=== PATIENT | female | born 1970 | race Hispanic/Latino ===

== ENCOUNTER 2020-06-23 14:11 | Outpatient (CLI) | payer OTHER ==
--- NOTE | 2020-06-23 19:14 | Ultrasound Report ---
ULTRASOUND PELVIS INDICATION / CLINICAL INFORMATION: PELVIC PAIN. TECHNIQUE: Transabdominal. Duplex Color Doppler used: Yes. COMPARISON: None available FINDINGS: UTERUS: Present. - Appearance (if present): No significant abnormality. - Size in cm (if present): 8.6 x 4.0 x 5.4. - Endometrial Complex (if present): No significant abnormality.. Thickness in cm (if measured) = 1.3 - Mass lesions: Small fundal fibroids noted, with the largest in the anterior myometrium measuring 2. 4 cm - Additional findings: None. RIGHT ADNEXA: There is a 5.1 cm simple cyst in the right ovary. Normal color Doppler blood flow. LEFT ADNEXA: No significant ovarian cyst or mass. Normal color Doppler blood flow. URINARY BLADDER: No significant abnormality. FREE FLUID: None. ADDITIONAL FINDINGS: None. IMPRESSION: 1. There is a 5.1 cm right ovarian cyst. This is almost totally benign. Follow-up pelvic ultrasound i n 1 year is recommended. 2. Small uterine fibroids. Signer Name: Uriel Quach MD Signed: 06/23/2020 7:09 PM Workstation Name: [id number]
--- NOTE | 2020-06-24 07:43 | Mammography Report ---
DIGITAL SCREENING MAMMOGRAM WITH CAD, 06/23/2020 CLINICAL INFORMATION / INDICATION: Routine screening mammography. TECHNIQUE: Digital bilateral 2D mammography was obtained in the craniocaudal and mediolateral obliqu e projections. This examination was interpreted with the benefit of Computer-Aided Detection analysis . COMPARISON: None available FINDINGS: Breast Density: The breasts are heterogeneously dense, which may obscure small masses. No dominant mass, suspicious calcifications, or architectural distortion in either breast. IMPRESSION: No mammographic evidence of malignancy. Follow up recommendation: Routine yearly BI-RADS Category 1: Negative. A "normal" or negative report should not discourage follow up or biopsy of a clinically significant f inding. A written summary of these findings will be mailed to the patient. The patient will be entered into a mammography reporting system which will generate a reminder letter for the patient's next appointmen t at the appropriate interval. The [employer] recommends yearly mammograms starting at age 40 and continuing as l zuleika as a woman is in good health. Breast MRI is recommended for women with an approximate 20-25% or greater lifetime risk of breast cancer, including women with a strong family history of breast or ova yosef cancer or who have been treated for Hodgkin's disease. Signer Name: Abhishek López MD Signed: 06/24/2020 7:39 AM Workstation Name: [id number]
== END 2020-06-23 14:12 | disposition home or self-care (01) ==
LOC: MAMMO 14:11
PROVIDERS: ATTEND Family Medicine Adult Medicine
DX: Z12.31 Encounter for screening mammogram for malignant neoplasm of breast (principal); N85.2 Hypertrophy of uterus; N83.291 Other ovarian cyst, right side; D25.9 Leiomyoma of uterus, unspecified
CPT/HCPCS: 76856; 77067

== ENCOUNTER 2020-07-22 06:12 | Day surgery (SDC) | payer OTHER ==
--- NOTE | 2020-07-21 14:15 | Anesthesia Consultation ---
Anesthesia Consult and Med Hx Date of service: 07/22/20 - Airway Anesthetic Teeth Evaluation: Poor (multiple missing teeth and evidence of decay) ROM Head & Neck: Adequate Mental/Hyoid Distance: Adequate Mallampati Class: Class I Intubation Access Assessment: Good - Pulmonary Exam CTA: Yes - Cardiac Exam Cardiac Exam: RRR - Pre-Operative Health Status ASA Pre-Surgery Classification: ASA2 Proposed Anesthetic Plan: General Nerve Block: TAP - Pulmonary Hx Smoking: Yes Hx Respiratory Symptoms: No - Cardiovascular System Hx Hypertension: No - Central Nervous System CVA: No Hx Psychiatric Problems: Yes (anxiety; alprazolam prn) - Gastrointestinal Hx Gastroesophageal Reflux Disease: No - Endocrine Hx Renal Disease: No Hx Liver Disease: No (hx HCV s/p treatment) Hx Insulin Dependent Diabetes: No Hx Non-Insulin Dependent Diabetes: No Hx Thyroid Disease: No - Other Systems Hx Alcohol Use: Yes (Occas) Hx Obesity: No - Additional Comments Anesthesia Medical History Comments: No hx anesthetic complications.
[2020-07-21 16:19] LABS: Hematocrit 42.7 % (30.3-42.9); Hemoglobin 14.6 gm/dl (10.1-14.3); Mean Corpuscular HGB Conc 34 % (30-34); Mean Corpuscular Volume 94 fl (79-97); Platelet Count 435 K/mm3 (140-440); Red Blood Count 4.55 M/mm3 (3.65-5.03); Red Cell Distribution Width 14.2 % (13.2-15.2)
[2020-07-21 17:37] LABS: RBC Morphology Normal; Total Cells Counted 100
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
[~2020-07-22 06:12] MED LIST: ACETAMINOPHEN 500 MG TAB PO SCH; CELECOXIB 200 MG CAP PO NR; GABAPENTIN 300 MG CAP PO NR; GENTAMICIN/NS 80 MG/100 ML 100 ML IV NR; LACTATED RINGERS 1,000 ML IV SCH; MIDAZOLAM 2 MG/2 ML INJ IV NR; fentaNYL 100 MCG/2 ML INJ IV PRN
[2020-07-22] MEDS ORDERED: BUPIVACAINE/PF (0.25%) 2.5 MG/ML 30 ML VIAL INFILTRATI ONE (07:07)
[2020-07-22] MEDS ORDERED: SODIUM CHLORIDE 0.9% 500 ML 500 ML ONE (07:13)
[2020-07-22] MEDS ORDERED: ROCURONIUM 50 MG/5 ML INJ IV ONE (07:17)
[2020-07-22] MEDS ORDERED: propofoL 200 MG/20 ML VIAL IV ONE (07:17)
[2020-07-22] MEDS ORDERED: LIDOCAINE MPF (2%) 20 MG/1 ML VIAL 5 ML ONE (07:17)
[2020-07-22] MEDS ORDERED: fentaNYL 100 MCG/2 ML INJ ONE (07:17)
[2020-07-22] MEDS ORDERED: NEOMY 40 MG/POLYMYXIN B 200,000 UNITS/ML (GU) AMPULE IR ONE ×2 (07:23→08:34)
[2020-07-22] MEDS ORDERED: ONDANSETRON 4 MG/2 ML INJ IV PRN (07:24)
[2020-07-22] MEDS ORDERED: MIDAZOLAM 2 MG/2 ML INJ IV NR (07:25)
--- NOTE | 2020-07-22 07:29 | Anesthesia Day of Surgery ---
Anesthesia Day of Surgery - Day of Surgery Patient Examined: Yes Patient H&P Reviewed: Yes Patient is NPO: Yes Beta Blockers: No Cardiac Clearance: No Pulmonary Clearance: No Chris's Test: N/A
[2020-07-22] MEDS ORDERED: SODIUM CHLORIDE 0.9% IRRIG SOLN 2000 ML IR ONE (08:35)
[2020-07-22] MEDS ORDERED: SODIUM CHLORIDE 0.9% IRR 1,500 ML BOTTLE IR ONE (08:35)
[2020-07-22] MEDS ORDERED: SCOPOLAMINE TRANSDERMAL PATCH 72 HR TD ONE (09:34)
[2020-07-22] MEDS ORDERED: NEOSTIGMINE 10MG/10 ML INJ MDV ONE (09:41)
[2020-07-22] MEDS ORDERED: PHENYLEPHRINE/NS 1,000 MCG/10 ML SYRINGE (OR USE) IV ONE (09:41)
[2020-07-22] MEDS ORDERED: GLYCOPYRROLATE 0.4 MG/2 ML INJ ONE (09:41)
[2020-07-22] MEDS ORDERED: dexAMETHasone 20 MG/5 ML VIAL ONE (09:41)
[2020-07-22] MEDS ORDERED: KETOROLAC 30 MG/1 ML INJ ONE (09:41)
[2020-07-22] MEDS ORDERED: ONDANSETRON 4 MG/2 ML INJ ONE (09:41)
[2020-07-22] MEDS ORDERED: LACTATED RINGERS 1,000 ML ONE (09:41)
--- NOTE | 2020-07-22 09:42 | Operative Report ---
Operative Report Operative Report: Date of surgery: July 22, 2020 Preoperative diagnoses: Chronic pelvic pain in female Postoperative diagnoses: Same as above; pelvic adhesive disease Procedure: Robotic hysterectomy and bilateral salpingo-oophorectomy; lysis of adhesion Surgeon: Tara Meredith M.D. Rigger Third: Kiki Matias Anesthesia: Gen. endotracheal anesthesia Estimated blood loss: 50 mL Pathology: Uterus, cervix, bilateral tubes and ovaries Indication: 50-year-old -0-1-4 with a history of chronic pelvic pain. The patient is elected for definitive surgical management. Procedure: The patient was taken to the operating room and given general endotracheal anesthesia without complication. She is prepped and draped in a normal sterile fashion. A bivalve speculum was placed in the patient's vagina and a single- tooth tenaculum placed on the anterior lip of the cervix. The uterus was sounded with the uterine sound. A stay suture was placed at 12 o'clock on the ectocervix. A [employer] uterine manipulator was placed in the bivalve speculum was then removed. A 5 mm skin incision was made supraumbilically just lateral to midline on the left side. The patient had a prior vertical skin incision. Veress needle was placed and peritoneal entry was verified water-filled syringe. Insufflation of the peritoneal cavity was performed with CO2 gas. 5 mm trocar and laparoscope was then inserted under direct visualization. There were noted to be all to pull omental adhesions to the anterior abdominal wall. The uterus and tubes were normal in appearance. There was evidence of a left ovarian cyst. Surgical site for the 12 mm trocar however was clear of adhesions. Under direct visualization a 12 mm supraumbilical trocar was then placed. The 12 mm trocar was then placed under direct visualization. An additional 8 mm trocar was placed on the patient's left and right lateral side just opposite of the supraumbilical trocar. An additional 5 mm right lateral trocar was then placed as the accessory port. The monopolar scissors were used in order to lyse the adhesions to improve visualization. Pelvis could not be adequately visualized until the adhesions were removed. The Mc Davey device was used to close the fascia of the 12 mm incision. The patient was then placed in steep Trendelenburg. The da Fidelina robot was then engaged. A fenestrated forcep was placed in arm 2 and a vessel sealer was placed in arm 1. The surgeon then transferred to the surgical console. The infundibulopelvic ligament was then isolated on the right. The vessel sealer was used to coagulate the ligament which was then transected. The tube and ovary were transected from the supply. The round ligament was then coagulated and transected also. The vesicouterine peritoneum was then entered from the patient's right side. The uterine vessels were then coagulated with the vessel sealer. The vessels were then transected . Attention was then turned to the patient's left side where the infundibulopelvic ligament and mesosalpinx were again isolated coagulated and transected. The vesical peritoneum was then entered from the left and joined in the midline. Peritoneum was reflected off of the lower uterine segment. Uterine vessels were then coagulated and then transected. The blood supply to the uterus was adequately contained, a posterior colpotomy was made. The V care ring was visualized. Posterior colpotomy was created with the monopolar scissors. The incision was continued circumferentially until anterior colpotomy was made. The cervix and uterus were amputated from the vaginal cuff. The uterus was then removed along with the tubes and ovaries bilaterally through the vagina and a warm laparotomy sponge was placed and maintain the pneumoperitoneum. The vaginal cuff was then closed in a running fashion with V lock suture. Irrigation of the pelvis was performed. Hemoblast was applied to the incision. The da Fidelina robot was then undocked. The pneumoperitoneum was released and the trochars were removed. The skin was then reapproximated with 4-0 Monocryl. The tissue was sent to pathology which included the cervix, uterus, tubes and ovaries. The patient was then successfully extubated. She was then taken to the recovery room in stable condition. All sponge laps and needle counts were correct x2.
[2020-07-22] MEDS: HYDROmorphone 1 MG/1 ML INJ IV PRN ×4 (10:25→11:03)
[2020-07-22] MEDS ORDERED: oxyCODONE /ACETAMINOPHEN 5-325MG TAB PO PRN (11:00)
[2020-07-22 11:49] VITALS: BP 133/73
--- NOTE | 2020-07-22 12:25 | Post Anesthesia Evaluation ---
- Post Anesthesia Evaluation Patient Participated: Yes Airway Patent: Yes Stable Respiratory Function: Yes Nausea/Vomiting: No Temp > 96.8F: Yes Pain Manageable: Yes Adequeate Hydration: Yes Anesthesia Complications: No
== END 2020-07-22 13:05 | disposition home or self-care (01) ==
LOC: OR 06:12
PROVIDERS: ATTEND Obstetrics & Gynecology
DX: R10.2 Pelvic and perineal pain (principal); N83.12 Corpus luteum cyst of left ovary; N88.8 Other specified noninflammatory disorders of cervix uteri; F17.210 Nicotine dependence, cigarettes, uncomplicated; F41.9 Anxiety disorder, unspecified; N73.6 Female pelvic peritoneal adhesions (postinfective); Z88.0 Allergy status to penicillin; Z88.8 Allergy status to other drugs, medicaments and biological substances; Z79.899 Other long term (current) drug therapy; Z72.89 Other problems related to lifestyle; Z98.890 Other specified postprocedural states
CPT/HCPCS: 36415; 58552; 84703; 85007; 85025; 86850; 86900; 86901; 88307; A4217; J1100; J1170; J1580; J1885; J2250; J2370; J2405; J2704; J2710; J3010; J7040; J7120; S2900; 64450

== ENCOUNTER 2021-04-01 10:35 | Emergency (ER) | payer SELFPAY ==
[2021-04-01 11:38] VITALS: BP 118/85
--- NOTE | 2021-04-01 13:54 | Emergency Department Report ---
ED Rash HPI - HPI Chief Complaint: Skin Rash Stated Complaint: BITES ALL OVER BODY Time Seen by Provider: 04/01/21 13:49 Duration: 3 Days Rash Symptoms: Yes Itching Severity: moderate Other History: The patient was evaluated in the emergency department for symptoms described in the history of present illness. He/she was evaluated in the context of the global COVID-19 pandemic, which necessitated consideration that the patient might be at risk for infection with the virus that causes COVID-19. Institutional protocols and algorithms that pertain to the evaluation of patients at risk for COVID-19 are in a state of rapid change based on information released by regulatory bodies including the CDC and federal and state organizations. These policies and algorithms were followed during the patient's care in the emergency department. Please note that these policies, procedures and recommendations changed on a rapid basis. 50-year-old female presents to the emergency room for rash she has had 3 days. Patient reports rash is very itchy is located in her arms. Fingers and toes and lasting. Patient admits that she stays to multiple hotel rooms and has been picking lesions. Patient denies any fever chills weeping of rash. ED Review of Systems ROS: Stated complaint: BITES ALL OVER BODY Other details as noted in HPI Comment: All other systems reviewed and negative ED Past Medical Hx - Past Medical History Hx Hypertension: No Hx Liver Disease: No (hx HCV s/p treatment) Hx Renal Disease: No - Social History Smoking Status: Current Every Day Smoker - Medications Home Medications: Home Medications Medication Instructions Recorded Confirmed Last Taken Type ALPRAZolam [Xanax TAB] 0.5 mg PO DAILY PRN 07/16/20 07/22/20 07/22/20 05:00 History HYDROcodone/APAP 5-325 [[place] 1 each PO Q6HR PRN 07/16/20 07/22/20 07/18/20 08:00 History 5/325] Sertraline [Zoloft] 50 mg PO QDAY 07/16/20 07/22/20 07/22/20 05:00 History Ibuprofen [Motrin] 800 mg PO Q8HR PRN #60 tablet 07/22/20 Unknown Rx Ondansetron HCl [Zofran] 4 mg PO TID PRN #20 tablet 07/22/20 Unknown Rx Oxycodone HCl/Acetaminophen 1 each PO Q6HR PRN #30 tablet 07/22/20 Unknown Rx [Percocet 10/325 mg] Permethrin [Nix LIQUID] 1 applic TP ONCE #1 bottle 04/01/21 Unknown Rx Rash Exam - Exam General: Vital signs noted. No distress. Alert and acting appropriately. HEENT: No Periorbital Edema, No Conjuctival Injection, No Chemosis, No Perioral Edema, No Tongue Edema, No Uvular Edema, No Compromised Airway, No Drooling Lungs: Yes Good Air Exchange (Normal Breath Sounds), No Wheezes, No Ronchi, No Stridor, No Cough, No Labored Respirations, No Retractions, No Use of Accessory Muscles, No Other Abnormal Lung Sounds Heart: Yes Regular, No Murmur Skin: Yes Excoriations (Multiple lesions tween finger toes waistline and back) Other: Positive: Abdomen Normal, Neurologic Normal, Musculoskeletal Normal ED Course Vital Signs 04/01/21 11:37 Temperature 98.0 F Pulse Rate 73 Respiratory 20 Rate Blood Pressure 118/85 O2 Sat by Pulse 99 Oximetry ED Medical Decision Making - Medical Decision Making 50-year-old female presents to the emergency room for rash she has had 3 days. Patient reports rash is very itchy is located in her arms Fingers and toes and lasting. Patient admits that she stays to multiple hotel rooms and has been picking lesions. Patient denies any fever chills weeping of rash. Patient's rash appears to be scabies. Prescription for permethrin 5% apply as directed. Follow-up at [facility]. Critical care attestation.: If time is entered above; I have spent that time in minutes in the direct care of this critically ill patient, excluding procedure time. ED Disposition Clinical Impression: Scabies Disposition: HOME / SELF CARE / HOMELESS Is pt being admited?: No Does the pt Need Aspirin: No Condition: Stable Instructions: Scabies, Adult Additional Instructions: Please use as directed on bottle. Prescriptions: Permethrin [Nix LIQUID] 1 applic TP ONCE #1 bottle Referrals: PRIMARY CARE, [Primary Care Provider] - 3-5 Days [facility] [Provider Group] - 3-5 Days
== END 2021-04-01 13:57 | disposition home or self-care (01) ==
LOC: ED 10:35
DX: B86 Scabies (principal); F17.200 Nicotine dependence, unspecified, uncomplicated; Z88.0 Allergy status to penicillin; Z88.8 Allergy status to other drugs, medicaments and biological substances
CPT/HCPCS: 99281

== ENCOUNTER 2021-12-30 07:59 | Emergency (ER) | payer SELFPAY ==
[2021-12-30 10:20] VITALS: BP 118/81
--- NOTE | 2021-12-30 11:38 | Emergency Department Report ---
Minor Respiratory - HPI Chief Complaint: Upper Respiratory Infection Stated Complaint: MARTI/COUGHING/HOT AND COLD Time Seen by Provider: 12/30/21 10:42 Duration: 2 Days Pain Location: Chest Severity: mild Minor Respiratory: Yes Able to Tolerate Fluids, Yes Cough, No Rhinorrhea, No Sore Throat, No Ear Pain, No Sick Contacts, No Hemoptysis, No Chest Pain, No Shortness of Breath, No Fever Other History: Patient is a 51-year-old female that comes to the emergency room complaining of cough and congestion. She is a current smoker. No fever or ch ills. No nausea vomiting or abdominal pain. No purulent sputum. No diarrhea. She is ambulatory, nontoxic [id number]. ED Review of Systems ROS: Stated complaint: MARTI/COUGHING/HOT AND COLD Other details as noted in HPI Comment: All other systems reviewed and negative ED Past Medical Hx - Past Medical History Previous Medical History?: Yes Hx Hypertension: No Hx Liver Disease: No (hx HCV s/p treatment) Hx Renal Disease: No - Surgical History Past Surgical History?: Yes - Family History Family history: no significant - Social History Smoking Status: Current Every Day Smoker Substance Use Type: None - Medications Home Medications: Home Medications Medication Instructions Recorded Confirmed Last Taken Type ALPRAZolam [Xanax TAB] 0.5 mg PO DAILY PRN 07/16/20 07/22/20 07/22/20 05:00 His tory HYDROcodone/APAP 5-325 [[place] 1 each PO Q6HR PRN 07/16/20 07/22/20 07/18/20 08:00 History 5/325] Sertraline [Zoloft] 50 mg PO QDAY 07/16/20 07/22/20 07/22/20 05:00 History Ibuprofen [Motrin] 800 mg PO Q8HR PRN #60 tablet 07/22/20 Unknown Rx Oxycodone HCl/Acetaminophen 1 each PO Q6HR PRN #30 tablet 07/22/20 Unknown Rx [Percocet 10/325 mg] ondansetron HCL [Zofran] 4 mg PO TID PRN #20 tablet 07/22/20 Unknown Rx Permethrin [Nix LIQUID] 1 applic TP ONCE #1 bottle 04/01/21 Unknown Rx Cetirizine HCl [ZyrTEC] 10 mg PO DAILY #30 capsule 12/30/21 Unknown Rx Fluticasone [Flonase] 1 spray NS QDAY #1 bottle 12/30/21 Unknown Rx predniSONE [Deltasone] 20 mg PO DAILY #5 tablet 12/30/21 Unknown Rx Minor Respiratory Exam - Exam General: Vital signs noted. No distress. Alert and acting appropriately. HEENT: Yes Moist Mucous Membranes, No Pharyngeal Erythema, No Pharyngeal Exudates, No Rhinorrhea, No Conjuctival Injection, No Frontal Tenderness, No Maxillary Tenderness Ear: Neither TM Bulge, Neither TM Erythema, Neither EAC Pain, Neither EAC Discharge Neck: Yes Supple, No Adenopathy Lungs: Yes Good Air Exchange, No Wheezes, No Ronchi, No Stridor, No Cough, No Labored Respirations, No Retractions, No Use of Accessory Muscles, No Other Abnormal Lung Sounds Heart: Yes Regular, No Murmur Abdomen: Yes Normal Bowel Sounds, No Tenderness, No Peritoneal Signs Skin: No Rash, No Edema Neurologic: Alert and oriented, no deficits. Musculoskeletal: Unremarkable. ED Course Vital Signs 12/30/21 10:16 Temperature 97.9 F Pulse Rate 74 Respiratory 16 Rate Blood Pressure 118/81 [Left] O2 Sat by Pulse 98 Oximetry ED Medical Decision Making - Radiology Data Radiology results: report reviewed, image reviewed No acute process - Medical Decision Making Vital Signs 12/30/21 10:16 Temperature 97.9 F Pulse Rate 74 Respiratory 16 Rate Blood Pressure 118/81 [Left] O2 Sat by Pulse 98 Oximetry Exam unremarkable. No wheezing. No fever. No hypotension or tachycardia. Ambulatory without shortness of breath X-ray noted no acute process. Patient likely has undiagnosed COPD Patient being discharged home with discharge plan of care including diet, activity medications and follow-up. She verbalizes understanding of plan of care - Differential Diagnosis URI Critical care attestation.: If time is entered above; I have spent that time in minutes in the direct care of this critically ill patient, excluding procedure time. ED Disposition Clinical Impression: URI (upper respiratory infection) Qualifiers: URI type: unspecified URI Qualified Code(s): J06.9 - Acute upper respiratory infection, unspecified Disposition: HOME / SELF CARE / HOMELESS Is pt being admited?: No Does the pt Need Aspirin: No Condition: Stable Instructions: Viral Respiratory Infection, [id number] Additional Instructions: Medications as ordered today. You currently do not need an antibiotic. Your x- ray is normal. Continue xtul-[id number] sinus symptom relief knowing that viral illness can take a couple weeks to get better. If you are feeling worse follow-up with primary care for your nonmedical emergencies. I have given you referral below. Motrin and Tylenol can be used for fever or pain. Diet activity as tolerated Prescriptions: predniSONE [Deltasone] 20 mg PO DAILY #5 tablet Fluticasone [Flonase] 1 spray NS QDAY #1 bottle Cetirizine HCl [ZyrTEC] 10 mg PO DAILY #30 capsule Referrals: MICKY FOUNTAIN MD [Staff Physician] - 3-5 Days Forms: Work/School Release Form(ED) Time of Disposition: 11:48
--- NOTE | 2021-12-30 11:49 | XRay Report ---
XR chest routine 2V INDICATION / CLINICAL INFORMATION: sob COMPARISON: None available. FINDINGS: SUPPORT DEVICES: None. HEART / MEDIASTINUM: No significant abnormality. LUNGS / PLEURA: Lungs are clear. Costophrenic sulci are sharp. No pneumothorax. ADDITIONAL FINDINGS: No significant additional findings. IMPRESSION: 1. No acute findings. Signer Name: Nolan Somers MD Signed: 12/30/2021 11:44 AM Workstation Name: [id number]
== END 2021-12-31 10:00 | disposition home or self-care (01) ==
LOC: ED 07:59
DX: J06.9 Acute upper respiratory infection, unspecified (principal); F17.200 Nicotine dependence, unspecified, uncomplicated
CPT/HCPCS: 71046; 99283